=== PATIENT | female | born 1995 | race Caucasian/White ===

== ENCOUNTER 2019-11-20 14:50 | Outpatient (CLI) | payer BC, SELFPAY ==
--- NOTE | ~2019-11-20 | US_ITS ---
EXAMINATION: US venous doppler [facility] DATE: 11/20/2019 15:33 INDICATION: Left lower limb swelling. TECHNIQUE: Grayscale ultrasound images without and with compression and Doppler ultrasound images of the left lower extremity veins were obtained. COMPARISON: None. FINDINGS: The visualized portions of left common femoral vein, profunda (deep) femoral vein, femoral vein, popl iteal vein, peroneal veins, posterior tibial veins, and greater saphenous vein outflow are patent. IMPRESSION: 1. No deep venous thrombosis. Reviewed, dictated and finalized at location A.
[2019-11-20 15:22] LABS: Basophils Absolute Auto 0.02 K/mm3 (0.00-0.10); Basophils Percent Auto 0.3 % (0.0-1.0); Eosinophils Absolute Auto 0.04 K/mm3 (0.02-0.50); Eosinophils Percent Auto 0.7 % (1.0-6.0); Hematocrit 43.3 % (35.0-49.0); Hemoglobin 14.2 g/dL (12.0-15.0); Immature Granulocyte Absolute 0.02 K/mm3 (0.00-0.00); Immature Granulocyte Percent A 0.3 % (0.0-0.0); Lymphocytes Absolute Auto 1.72 K/mm3 (1.10-4.50); Lymphocytes Percent Auto 29.7 % (18.0-42.0); Mean Corpuscular HGB Conc 32.8 g/dL (32.0-36.0); Mean Corpuscular Hemoglobin 32.7 pg (27.0-31.0); Mean Corpuscular Volume 99.8 fL (78.0-102.0); Mean Platelet Volume 9.5 fl (9.2-11.8); Monocytes Absolute Auto 0.42 K/mm3 (0.10-0.90); Monocytes Percent Auto 7.3 % (2.0-11.0); Neutrophils Absolute Auto 3.6 K/mm3 (1.7-7.2); Neutrophils Percent Auto 61.7 % (50.0-70.0); Platelet Count Result 259 K/mm3 (150-420); Red Blood Count 4.34 M/mm3 (4.20-5.40); Red Cell Distribution Width 11.8 % (11.6-14.4); White Blood Count 5.8 K/mm3 (4.8-10.8)
[2019-11-20 15:27] LABS: Add Urine Microscopic? YES; Appearance Urine Clear (Clear); Bilirubin Urine Negative (Negative); Blood Urine 1+ (Negative); Color Urine Yellow (Yellow); Glucose Urine UA Negative (Negative); Ketones Urine Negative (Negative); Leukocyte Esterase Ur 1+ (Negative); Nitrate Urine Negative (Negative); Protein Urine Negative (Negative); Specific Grav Ur 1.025 (1.010-1.020); Urobilinogen Urine 0.2 mg/dL (0.2-1.0)
[2019-11-20 15:35] LABS: Bacteria Urine Trace /hpf; Squamous Epithelial Cell Urine Few /hpf (Few)
[2019-11-20 16:17] LABS: Alanine Aminotransferase 19 U/L (14-59); Albumin Level 3.3 g/dL (3.4-5.0); Alkaline Phosphatase 41 U/L (46-116); Anion Gap 8.3 mmol/L (7-16); Aspartate Amino Transferase 17 U/L (15-37); Bilirubin,Total 0.2 mg/dL (0.00-1.00); Blood Urea Nitrogen 14 mg/dL (7-18); CRP 0.5 mg/dL (0.0-0.9); Calcium 8.8 mg/dL (8.5-10.1); Carbon Dioxide 30 mmol/L (21-32); Chloride 102 mmol/L (98-108); Estimated Glomerular Filt Rate > 60; Glucose 90 mg/dL (70-99); Osmolality Calculated 282 mOsm/kg (285-295); Potassium 4.3 mmol/L (3.5-5.1); Sodium 136 mmol/L (136-145); Thyroid Stimulating Hormone 1.14 uIU/mL (0.36-3.74); Total Protein 6.8 g/dL (6.4-8.2)
== END 2019-11-20 14:51 | disposition home or self-care (01) ==
LOC: CHSLAB 14:54
PROVIDERS: PCP Internal Medicine; Visit Provider Internal Medicine
DX: M79.89 Other specified soft tissue disorders (principal); M25.50 Pain in unspecified joint
CPT/HCPCS: 36415; 80053; 81001; 84443; 85025; 86140; 93971

== ENCOUNTER 2020-07-29 13:02 | Outpatient (RCR) | payer OTHER, SELFPAY ==
--- NOTE | 2020-07-29 16:52 | OTOPEVAL ---
Thank you for referring Zuri Jean to [facility].? The patient is scheduled to be seen for therapy? ____x/week for ___ weeks. Please review, sign, date and return this plan of care RUBÉN. I agree with and certify that the following plan of care is medically necessary. Referring Physician Date Admitting Provider: Attending Provider: Salty Siegel MD Referring Provider: *OT Outpatient Evaluation Start: 07/29/20 11:38 Freq: Status: Active Protocol: Document 07/29/20 13:06 [facility] [facility] (Rec: 07/29/20 14:03 [facility] [id number]) Therapy Assessment Status Assessment Status Assessment Status Evaluation Outpatient Past Medical History Past Medical History No Past Medical/Surgical History Patient/Family Denies Significant Past Medical/ Surgical History Evaluation Information Problem Diagnosis R hand/wrist pain Onset 07/02/20 Cause Tendonitis Subjective Information Patient reports that her R Query Text:As Reported By Patient/ wrist started with shooting Family pain on 07/02/20 and it swelled up. Patient reports that she saw the doctor on July 08, 2020 who diagnosed with tendonitis and a thumb spica splint was recommended. Since then pain and edmea has improved however pain continues to present. Patient works at [employer] and is required to do a lot of heavy lifting. Patient reports that the pain started after scraping the floor. She recently had accomodations approved at work that does not allow her to lift over 20# but was lifting up to 50#. Patient reports increased pain on days that she works. Patient states that symptoms are present in the left hand as well and seem to be getting worse. Patient arrives to evaluation with thumb spica orthosis donned. Diagnostic Tests X-Rays For This Problem No MRI For This Problem No Prior Level of Function Activity Level (Last 3 Months) Occupation [employer] Hand Dominance Right Activity of Daily Living Sharla
--- NOTE | 2020-08-12 13:51 | OTOPEVAL ---
Thank you for referring Zuri Jean to [facility].? The patient is scheduled to be seen for therapy? ____x/week for ___ weeks. Please review, sign, date and return this plan of care RUBÉN. I agree with and certify that the following plan of care is medically necessary. Referring Physician Date Admitting Provider: Attending Provider: Salty Siegel MD Referring Provider: *OT Outpatient Evaluation Start: 07/29/20 11:38 Freq: Status: Active Protocol: Document 08/12/20 13:28 [facility] [place]Rec: 08/12/20 13:[place] [facility] [id number] Therapy Assessment Status Assessment Status Assessment Status Progress Outpatient Past Medical History Past Medical History No Past Medical/Surgical History Patient/Family Denies Significant Past Medical/ Surgical History Evaluation Information Problem Subjective Information Patient reports that overall Query Text:As Reported By Patient/ her right wrist pain has Family decreased/diminished although she has not been using it much and has not been doing any lifting. Patient continues to utilize her R thumb spica orthosis and is doing much better. Pain Assessment Timing of Pain Assessment Timing of Pain Assessment Pre-Treatment Self Report Self Report Pain Level 0 Pain Score Pain Score 0: Self Report Upper Extremity Range of Motion Wrist Range of Motion Right Wrist Flexion - Active 60 Hand Collateral Analyst/Pinch Strength Assessment Hand Right Collateral Analyst Strength (lbs) 57 Tip Pinch Strength (lbs) 6 Extremity Circumference Assessment Circumference Assessment Circumference Comments R wrist: 15.0 cm General Exercise General Exercises Side Right Exercise Description PROM for R wrist extension and Query Text:Record Sets, Reps, flexion, holding 20 seconds x Resistance, and Position 3 reps each AROM for R wrist flexion and extension x 10 reps AROM for R radial and ulnar deviation x 10 reps 2# resisting R wrist extension and radial deviation, 20 reps x 2 sets green digi-flex resisting R, 20 reps x 2 sets R tripod grasp on green clothespin, 20 reps x 2 sets red thera-bar 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
--- NOTE | 2020-10-15 09:08 | PCOTNOTE ---
Patient is discharged from skilled OT services as she was seen by orthopedics who gave patient an injection. MS See patient's last note for patient's skills at time of discharge. MS
== END 2020-09-01 15:08 | disposition home or self-care (01) ==
LOC: CHSOT 13:02
PROVIDERS: PCP Internal Medicine; Visit Provider Internal Medicine
DX: M65.4 Radial styloid tenosynovitis [de Quervain] (principal)
CPT/HCPCS: 97035; 97110; 97140; 97165; 97530